=== PATIENT | female | born 1970 | race African-American/Black ===

== ENCOUNTER → 2017-04-04 | Outpatient (CLI) | payer OTHER ==
[~2017-04-04] MED LIST: HYDR25TA PO; HYDR25TA9 PO; METF750T2 PO; PARO40TA3 PO; POTA10TA5 PO
--- NOTE | 2017-04-04 12:41 | KCIC ---
Lumbar Spine 5 views. 04/04/2017 Indication: Low back pain with bilateral leg pain Comparison: None available Procedure: AP, lateral, both obliques and cone view of the lumbosacral junction are obtained. Findings: Normal lumbar lordosis is preserved.Vertebral body heights and intervertebral disc spaces are maintained. Mild marginal osteophytes are seen throughout. Mild bilateral facet hypertrophic changes are also seen involving the lower lumbar spine. No evidence of acute compression fracture , subluxation or dislocation is present. Nonspecific bowel gas pattern Impression: Mild spondylotic changes involving the lumbar spine. No acute abnormality seen. If symptoms persist, MRI or CT scan could be used for further evaluation. Electronically signed by: Milana Gutierrez MD (04/04/2017 12:37 PM) [place] [id number]
== END | disposition home or self-care (01) ==
LOC: KCIC 11:18
PROVIDERS: ATTEND Family Medicine
DX: M47.896 Other spondylosis, lumbar region (principal)
CPT/HCPCS: 72110

== ENCOUNTER → 2018-12-18 | Outpatient (CLI) | payer OTHER ==
[~2018-12-18] MED LIST changes: +GADOBUTROL 7.5 MMOL/7.5 ML VIAL IV ONE; +HYDR-2145 PO; -HYDR25TA9 PO; +POTA10TA12 PO; -POTA10TA5 PO
--- NOTE | 2018-12-18 10:31 | KCIC ---
MRI Brain with and without contrast History: Pituitary adenoma, headache Technique: Multiplanar, multi sequential pre and postcontrast MR imaging was performed of the brain. Comparison: July 28, 2015 Findings: There is unchanged appearance of convex superior margin of the pituitary gland, maximal size about 0.8 cm CC by 0.7 cm transverse by 0.7 cm AP. There is similar very mild deviation of the infundibulum to the left. No new discrete focus of decreased enhancement is identified of the pituitary gland. There is no new deviation of the optic chiasm. There is no evidence of recent infarct or cytotoxic edema. The ventricles, sulci, and cisterns are within normal limits in size and configuration. There is no significant midline shift, intraaxial mass effect, or focal abnormal extra-axial fluid collection. There are couple of tiny foci of T2 and FLAIR hyperintense signal such as of the bifrontal deep white matter and anterior right external capsule, not convincingly changed. There is developmental venous anomaly of the posterior right frontal lobe. There is no nodular parenchymal or leptomeningeal enhancement. There is preservation of the major intracranial flow-voids at the skull base. The cerebellar tonsils are normal in location. There is no significant abnormality of the pineal pituitary gland. There is patchy mild bilateral ethmoid air cell and sphenoid sinus mucosal thickening. There is small left posterior maxillary sinus mucous retention cyst, also anteriorly of a right ethmoid air cell about 0.8 cm. There is slightly disconjugate gaze. The mastoid air cells are aerated. There is preserved marrow signal of the clivus. Impression: 1. Appearance of the pituitary gland is unchanged comparing with previous 2015 exam, convex superior margin without new focus of discrete hypoenhancement. 2. There are again a few small foci of nonenhancing T2 and FLAIR hyperintense signal of the supratentorial parenchyma as may be due to small foci of nonspecific gliosis. White matter changes can be seen in patients with migraine headaches if corresponding history. Electronically signed by: Lul Dorantes MD (12/18/2018 10:28 AM) [id number]
== END | disposition home or self-care (01) ==
LOC: KCIC MRI 08:31
PROVIDERS: ATTEND Family Medicine
DX: D35.2 Benign neoplasm of pituitary gland (principal); J34.1 Cyst and mucocele of nose and nasal sinus
CPT/HCPCS: 70553; A9585

== ENCOUNTER → 2019-05-16 | Outpatient (CLI) | payer OTHER ==
[~2019-05-16] MED LIST changes: -GADOBUTROL 7.5 MMOL/7.5 ML VIAL IV ONE; -METF750T2 PO; +METF750T39 PO
--- NOTE | 2019-05-18 18:15 | RAD ---
DATE: 05/16/2019 EXAM: DIGITAL DIAGNOSTIC BILATERAL, BREAST BILATERAL HISTORY: Bilateral breast pain. Left breast nipple discharge which is brown in color. COMPARISON: No recent comparison exams available at this time. This study was interpreted with the benefit of Computerized Aided Detection (CAD). Breast Density: SCATTERED The breast parenchyma shows scattered fibroglandular densities. Breast parenchyma level B. FINDINGS: Right upper outer breast mass measuring up to 0.9 cm diameter is well-circumscribed. No suspicious calcifications. No distortion. The left subareolar region is unremarkable on mammographic imaging. Ultrasound imaging of the right breast 9:00 region demonstrates a well-circumscribed structure measuring 0.8 cm x 0.6 cm x 0.6 cm. Echogenic central component which may represent a hilum of a lymph node is evident. Ultrasound imaging of the left subareolar region demonstrates mild ductal ectasia. No mass. No suspicious findings on physical exam by myself.. IMPRESSION: Six-month follow-up ultrasound examination of the right breast to assess stability of the mass present which may represent a lymph node. Clinical management of left breast nipple discharge is recommended. Mild ductal ectasia of the left subareolar region noted. BI-RADS CATEGORY: 3 PROBABLY BENIGN FINDING(S)-SHORT INTERVAL FOLLOW-UP SUGGESTED RECOMMENDED FOLLOW-UP: CLIN FOLLOW UP IMAGING CLINICALLY INDICATED PQRS compliance statement: Patient information was entered into a reminder system with a target due date pending ultrasound evaluation in 6 months for the next mammogram. Mammography is a sensitive method for finding small breast cancers, but it does not detect them all and is not a substitute for careful clinical examination. A negative mammogram does not negate a clinically suspicious finding and should not result in delay in biopsying a clinically suspicious abnormality. "Our facility is accredited by the [employer] Mammography [employer]."
== END | disposition home or self-care (01) ==
LOC: MAMMO 12:53
PROVIDERS: ATTEND Family Medicine
DX: N63.11 Unspecified lump in the right breast, upper outer quadrant (principal); N60.42 Mammary duct ectasia of left breast
CPT/HCPCS: 76641; 77066

== ENCOUNTER → 2021-07-28 | Outpatient (CLI) | payer OTHER ==
--- NOTE | 2021-07-28 14:36 | RAD ---
EXAM: 1. BILATERAL DIGITAL DIAGNOSTIC MAMMOGRAPHY. 2. BILATERAL BREAST ULTRASOUND. HISTORY: Sporadic bilaterally left nipple discharge. The patient was to return for six-month follow-u p of a right breast nodule. She presents at 26 months. TECHNIQUE: Bilateral full field digital images were obtained in CC and MLO projections with tomosynth esis. Computer-aided detection was applied. Sonography of both breasts was also performed. COMPARISON: 05/16/2019. COMPOSITION: C. The breasts are heterogeneously dense, which may obscure small masses. FINDINGS: A nodule of concern laterally on the right has decreased in size slightly. On today's sonog rissa, this corresponds with an intraparenchymal lymph node at the 9:00 position 6 cm from the nipple measuring 7 x 5 mm. It has decreased in size slightly since the prior study. There is no suspicious sonographic finding on the right. Right axillary lymph nodes appear benign. There is no suspicious ma mmographic finding on the right. On the left, mildly prominent subareolar ducts appear stable. There is no intraductal mass sonographi brayden. Sonography of the left axilla reveals normal-appearing lymph nodes. There is no suspicious kristopher mographic finding on the left. The parenchymal pattern is stable bilaterally. BI-RADS CATEGORY: 2: Benign. RECOMMENDATION: 1. Ongoing clinical follow-up of nipple discharge. 2. Routine screening mammography in one year. If mammography demonstrates dense breast tissue (heterogenously dense or extremely dense, category C or D), which could hide abnormalities, and if other risk factors for breast cancer have been identifi ed, supplemental screening tests that may be suggested by the ordering physician may be of benefit. D ense breast tissue, in and of itself, is a relatively common condition. Therefore, this information i s not provided to cause undue concern, but rather to raise awareness and to promote discussion with t he referring physician regarding the presence of other risk factors, in addition to dense breast tiss ue. The results of this mammography examination is provided to the patient and referring physician. T he patient should contact their referring physician if any questions or concerns exist regarding this report. PQRS compliance statement - Patient information was entered into a reminder system with a target due date for the next mammogram. "Our facility is accredited by the [employer]amm[employer]." Electronically signed by: Laxmi Sevilla MD (07/28/2021 2:34 PM) [id number]
== END ==
LOC: MAMMO 13:40
PROVIDERS: ATTEND Family Medicine
DX: R92.8 Other abnormal and inconclusive findings on diagnostic imaging of breast (principal); N64.52 Nipple discharge
CPT/HCPCS: 76641; 77066; G0279; 77062